=== PATIENT | female | born 1970 | race Hispanic/Latino ===

== ENCOUNTER 2017-08-13 19:59 | Emergency (ER) | payer SELFPAY ==
[~2017-08-13] VITALS: Ht 157.5 cm; Wt 52.0 kg
[2017-08-13] MEDS ORDERED: FLOXIN OTIC0.3 % AU (20:31)
[2017-08-13] MEDS ORDERED: AMOXICILLIN875 MG PO (20:31)
[2017-08-13] MEDS ORDERED: LORTAB 10-325 M1 TAB PO (20:31)
[2017-08-13 21:05] VITALS: BP 165/80
== END 2017-08-13 21:05 | disposition home or self-care (01) | DRG 153 ==
LOC: ED 19:59
DX: H66.93 Otitis media, unspecified, bilateral (principal)